=== PATIENT | male | born 1935 | race Caucasian/White ===

== ENCOUNTER 2020-01-09 11:50 | Outpatient (CLI) | payer MEDICARE, BC | END 2020-01-09 11:51 | disposition critical access hospital (66) | LOC: EMS 11:50 | PROVIDERS: ATTEND Surgery | DX: R40.20 Unspecified coma (principal) | CPT/HCPCS: A0425; A0433 ==

== ENCOUNTER 2020-01-09 12:06 | Observation (INO) | payer MEDICARE, BC ==
[2020-01-09] MEDS ORDERED: SODIUM CHLORIDE 0.9% 1,000 ML IV STA (12:10)
[2020-01-09] MEDS ORDERED: EPINEPHrine ABBOJECT 1 MG/10 ML SYRINGE IVP STA (12:16)
--- NOTE | 2020-01-09 12:25 | ED Physician Documentation ---
PD HPI CPR - Stated complaint Stated Complaint: UNRESPONSIVE - Chief complaint Chief Complaint: Resp - History obtained from History obtained from: Family, EMS - Additional information Additional information: Healthy 84-year-old gentleman although he does not see doctors per se. All the history is from the paramedics and the since he is obtunded. Recently had some trouble with vision in the right eye and was seen by an warp spinner and subsequently referred to a retinal specialist. Reportedly has low blood flow in the right eye and was scheduled today to have a full physical which is the first time in a long time. He went out to his shop around 9 AM and was found by a neighbor collapsed on the ground. He had vomited and there was a little bit of blood from something. Per paramedics he was obtunded, did not resist an oral airway and was intubated prior to arrival with the use of etomidate, succinylcholine, and vecuronium. Review of Systems Unable to obtain: Intubated PD PAST MEDICAL HISTORY - Allergies Allergies/Adverse Reactions: Allergies Allergy/AdvReac Type Severity Reaction Status Date / Time No Known Drug Allergies Allergy Verified 01/09/20 12:12 PD ED PE NORMAL - Vitals Vital signs reviewed: Yes - General General: Other (Intubated with good bilateral breath sounds and chest rise) - HEENT HEENT: Other ([place] nonreactive pupils) - Neck Neck: Other (In a c-collar) - Cardiac Cardiac: RRR, No murmur - Respiratory Respiratory: Other (Rhonchorous bilaterally) - Abdomen Abdomen: Non tender, Other (There is a nonpulsatile mass to the right mid abdomen of unclear acuity, the had not noted it.) - Back Back: No CVA TTP, No spinal TTP - Derm Derm: Normal color, Other (Cool extremities) - Extremities Extremities: No edema - Neuro Eye Opening: None Motor: None Verbal: None GCS Score: 3 Results - Vitals Vitals: Vital Signs - 24 hr 01/09/20 01/09/20 01/09/20 12:12 12:16 12:31 Temperature 97.2 C H Heart Rate 137 H 137 H 105 H Respiratory 12 12 16 Rate Blood Pressure 133/90 H 220/180 H 182/155 H O2 Saturation 98 94 99 01/09/20 01/09/20 01/09/20 12:56 13:01 13:16 Temperature Heart Rate 114 H 105 H 105 H Respiratory 24 8 L Rate Blood Pressure 104/86 H 99/80 O2 Saturation 99 99 01/09/20 13:30 Temperature Heart Rate 108 H Respiratory 26 H Rate Blood Pressure 185/146 H O2 Saturation 91 L Oxygen O2 Source Room air - EKG (time done) 1227 Rate: Rate (enter#) (128) Rhythm: Sinus tachycardia Intervals: RBBB Ischemia: ST elevation c/w ischemia (Kind of diffusely but especially anteriorly and laterally. Of note this was done just after CPR was done, so not sure it represents true STEMI.) Computer interpretation: Agree with computer - Labs Labs: Laboratory Tests 01/09/20 01/09/20 01/09/20 12:23 12:32 12:32 WBC 24.0 H RBC 4.92 Hgb 16.4 Hct 49.1 MCV 99.8 H MCH 33.3 H MCHC 33.4 RDW 12.7 Plt Count 289 MPV 9.2 Neut # (Auto) 18.1 H Lymph # (Auto) 3.2 [place] # (Auto) 1.5 H Eos # (Auto) 0.3 Baso # (Auto) 0.3 H Absolute Nucleated RBC 0.00 Band Neuts % (Manual) WINDOW TRIMMER Abnorm Lymph % (Manual) WINDOW TRIMMER Nucleated RBC % 0.0 Neutrophils # (Manual) Not Reportable Lymphocytes # (Manual) WINDOW TRIMMER Monocytes # (Manual) WINDOW TRIMMER Eosinophils # (Manual) WINDOW TRIMMER Basophils # (Manual) WINDOW TRIMMER Manual Slide Review Indicated RBC Morph Micro Appear 2+ ANISOCYTOSIS PT 12.7 H INR 1.1 Sodium Potassium Chloride Carbon Dioxide Anion Gap BUN Creatinine Estimated GFR (MDRD) Glucose Calcium Magnesium Total Bilirubin AST ALT Alkaline Phosphatase Total Creatine Kinase CK-MB (CK-2) Troponin I High Sens Total Protein Albumin Globulin Albumin/Globulin Ratio Lipase TSH Urine Color YELLOW Urine Clarity CLOUDY Urine pH 6.0 Ur Specific [place] 1.020 Urine Protein 100 H Urine Glucose (UA) 250 H Urine Ketones NEGATIVE Urine Occult Blood SMALL H Urine Nitrite NEGATIVE Urine Bilirubin NEGATIVE Urine Urobilinogen 0.2 (NORMAL) Ur Leukocyte Esterase NEGATIVE Urine RBC 6-10 H Urine WBC 4-5 Ur Squamous Epith Cells RARE Squamous Urine Bacteria Moderate H Urine Casts 0-2 Hyaline Casts Ur Microscopic Review INDICATED Urine Culture Comments INDICATED Salicylates Urine Opiates Screen NEGATIVE Ur Oxycodone Screen NEGATIVE Urine Methadone Screen NEGATIVE Ur Propoxyphene Screen NEGATIVE Acetaminophen Ur Barbiturates Screen NEGATIVE Ur Tricyclics Screen NEGATIVE Ur Phencyclidine Scrn NEGATIVE Ur Amphetamine Screen NEGATIVE U Methamphetamines Scrn NEGATIVE U Benzodiazepines Scrn NEGATIVE Urine Cocaine Screen NEGATIVE U Cannabinoids Screen NEGATIVE Ethyl Alcohol 01/09/20 01/09/20 01/09/20 12:32 12:32 12:32 WBC RBC Hgb Hct MCV MCH MCHC RDW Plt Count MPV Neut # (Auto) Lymph # (Auto) [place] # (Auto) Eos # (Auto) Baso # (Auto) Absolute Nucleated RBC Band Neuts % (Manual) Abnorm Lymph % (Manual) Nucleated RBC % Neutrophils # (Manual) Lymphocytes # (Manual) Monocytes # (Manual) Eosinophils # (Manual) Basophils # (Manual) Manual Slide Review RBC Morph Micro Appear PT INR Sodium 137 Potassium 3.1 L Chloride 102 Carbon Dioxide 24 Anion Gap 11.0 BUN 24 H Creatinine 1.6 H Estimated GFR (MDRD) 42 L Glucose 300 H Calcium 8.1 L Magnesium 2.1 Total Bilirubin 0.8 AST 45 H ALT 35 Alkaline Phosphatase 66 Total Creatine Kinase 118 CK-MB (CK-2) 11.3 H Troponin I High Sens Total Protein 6.7 Albumin 3.9 Globulin 2.8 Albumin/Globulin Ratio 1.4 Lipase 41 TSH 2.20 Urine Color Urine Clarity Urine pH Ur Specific [place] Urine Protein Urine Glucose (UA) Urine Ketones Urine Occult Blood Urine Nitrite Urine Bilirubin Urine Urobilinogen Ur Leukocyte Esterase Urine RBC Urine WBC Ur Squamous Epith Cells Urine Bacteria Urine Casts Ur Microscopic Review Urine Culture Comments Salicylates < 6.0 Urine Opiates Screen Ur Oxycodone Screen Urine Methadone Screen Ur Propoxyphene Screen Acetaminophen < 10 L Ur Barbiturates Screen Ur Tricyclics Screen Ur Phencyclidine Scrn Ur Amphetamine Screen U Methamphetamines Scrn U Benzodiazepines Scrn Urine Cocaine Screen U Cannabinoids Screen Ethyl Alcohol < 5.0 01/09/20 12:37 WBC RBC Hgb Hct MCV MCH MCHC RDW Plt Count MPV Neut # (Auto) Lymph # (Auto) [place] # (Auto) Eos # (Auto) Baso # (Auto) Absolute Nucleated RBC Band Neuts % (Manual) Abnorm Lymph % (Manual) Nucleated RBC % Neutrophils # (Manual) Lymphocytes # (Manual) Monocytes # (Manual) Eosinophils # (Manual) Basophils # (Manual) Manual Slide Review RBC Morph Micro Appear PT INR Sodium Potassium Chloride Carbon Dioxide Anion Gap BUN Creatinine Estimated GFR (MDRD) Glucose Calcium Magnesium Total Bilirubin AST ALT Alkaline Phosphatase Total Creatine Kinase CK-MB (CK-2) Troponin I High Sens 1930.8 H* Total Protein Albumin Globulin Albumin/Globulin Ratio Lipase TSH Urine Color Urine Clarity Urine pH Ur Specific [place] Urine Protein Urine Glucose (UA) Urine Ketones Urine Occult Blood Urine Nitrite Urine Bilirubin Urine Urobilinogen Ur Leukocyte Esterase Urine RBC Urine WBC Ur Squamous Epith Cells Urine Bacteria Urine Casts Ur Microscopic Review Urine Culture Comments Salicylates Urine Opiates Screen Ur Oxycodone Screen Urine Methadone Screen Ur Propoxyphene Screen Acetaminophen Ur Barbiturates Screen Ur Tricyclics Screen Ur Phencyclidine Scrn Ur Amphetamine Screen U Methamphetamines Scrn U Benzodiazepines Scrn Urine Cocaine Screen U Cannabinoids Screen Ethyl Alcohol - Rads (name of study) CT Head Radiology: EMP read contemporaneously (extensive SAH with inraventricular hemorrhage likely d/t R aneurysm) 1v chest Radiology: EMP read contemporaneously (ETT ok, neurogenic pulm edema.) CT abd Radiology: EMP read contemporaneously (Right anterior rib fractures, 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 He did lose his pulses shortly after his arrival. Was in a wide-complex PEA, regular, although look too slow to be V. tach. He responded to epinephrine and CPR. I accompanied him over to CT, to my eye the head CT shows a large right basal ganglia hemorrhage with both intraventricular and subarachnoid extension as well as early signs of ventriculomegaly. This was discussed with the . I discussed that the prognosis of this is very poor at best. He has been started on esmolol for significant hypertension, I wanted something that was very short acting and could be titrated off if he arrested again. He actually did arrest again very briefly, but responded to CPR. After extensive discussions with the , her son, and other family they made the decision to transition to comfort care. He was extubated. He did have some prolonged agonal breathing and was administered some morphine. After extubation he continued to have agonal breathing for quite some time and Dr. Lucasf will put him on the floor for continued comfort care. - Critical Care Time(min): 60 Time Includes: Direct patient care, Review records, Reassess patient, Document care, Coordinate care, Family consult for tx dec Data interpretation: Labs, Pulse ox, CXR Procedures included in critical care time: Peripheral IV Procedures excluded from critical care time: EKG, CPR Departure - Departure Disposition: ED Place in Observation Clinical Impression: Subarachnoid hemorrhage, Need for comfort care, DNR (do not resuscitate) Respiratory failure Qualifiers: Chronicity: acute Respiratory failure complication: hypercapnia Qualified Code(s): J96.02 - Acute respiratory failure with hypercapnia Abdominal mass Qualifiers: Abdominal location: right lower quadrant Qualified Code(s): R19.03 - Right lower quadrant abdominal swelling, mass and lump Pulmonary edema Qualifiers: Chronicity: acute Qualified Code(s): J81.0 - Acute pulmonary edema Condition: Serious
[2020-01-09 12:38] LABS: BASOPHILS # (AUTO) 0.3 10^3/uL (0.0-0.1); BASOPHILS % (AUTO) 1.2 %; EOSINOPHILS # (AUTO) 0.3 10^3/uL (0.0-0.7); EOSINOPHILS % (AUTO) 1.1 %; HGB - HEMOGLOBIN 16.4 g/dL (14.0-18.0); LYMPHOCYTES # (AUTO) 3.2 10^3/uL (1.5-3.5); LYMPHOCYTES % (AUTO) 13.2 %; MEAN CORPUSCULAR HEMOGLOBIN 33.3 pg (27.0-31.0); MEAN CORPUSCULAR HGB CONC 33.4 g/dL (32.0-36.0); MEAN CORPUSCULAR VOLUME 99.8 fL (80.0-94.0); MEAN PLATELET VOLUME 9.2 fL (7.4-11.4); MONOCYTES # (AUTO) 1.5 10^3/uL (0.0-1.0); MONOCYTES % (AUTO) 6.4 %; NEUTROPHILS # (AUTO) 18.1 10^3/uL (1.5-6.6); NEUTROPHILS % (AUTO) 75.5 %; PLT - PLATELET COUNT 289 10^3/uL (130-450); RED BLOOD COUNT 4.92 10^6/uL (4.70-6.10); RED CELL DISTRIBUTION WIDTH 12.7 % (12.0-15.0)
[2020-01-09] MEDS ORDERED: IOVERSOL 320 100 ML VIAL IVP ONE ×2 (12:39→15:13)
[2020-01-09 12:50] LABS: INR 1.1 (0.8-1.2); PT - PROTHROMBIN TIME 12.7 secs (9.9-12.6)
[2020-01-09] MEDS ORDERED: ESMOLOL 2.5 GM/250 ML BAG IV STA (12:53)
[2020-01-09] MEDS ORDERED: ESMOLOL 100 MG/10 ML VIAL IVP STA (12:53)
[2020-01-09 12:54] LABS: ACETAMINOPHEN < 10 ug/mL (10-30); ALBUMIN 3.9 g/dL (3.2-5.5); ALBUMIN/GLOBULIN RATIO 1.4 (1.0-2.2); ALKALINE PHOSPHATASE 66 IU/L (42-121); ALT ALANINE AMINOTRANSFERASE 35 IU/L (10-60); AST ASPARTATE AMINOTRANSFERASE 45 IU/L (10-42); BILIRUBIN,TOTAL 0.8 mg/dL (0.2-1.0); BUN - BLOOD UREA NITROGEN 24 mg/dL (6-20); CALCIUM 8.1 mg/dL (8.5-10.3); CARBON DIOXIDE - CO2 24 mmol/L (21-32); CHLORIDE 102 mmol/L (101-111); CK- CREATINE KINASE 118 IU/L (22-269); CREATININE 1.6 mg/dL (0.6-1.2); GLUCOSE 300 mg/dL (70-100); LIPASE 41 U/L (22-51); MAGNESIUM 2.1 mg/dL (1.7-2.8); SALICYLATE < 6.0 mg/dL; SODIUM 137 mmol/L (135-145); TOTAL PROTEIN 6.7 g/dL (6.7-8.2)
--- NOTE | 2020-01-09 13:01 | CT Report ---
PROCEDURE: HEAD WO INDICATIONS: obtunded TECHNIQUE: Noncontrast 4.5 mm thick angled axial sections acquired from the foramen magnum to the vertex. For r adiation dose reduction, the following was used: automated exposure control, adjustment of mA and/or kV according to patient size. COMPARISON: None. FINDINGS: Image quality: Excellent. There is extensive subarachnoid and intraparenchymal hemorrhage at the epicenter at the right [place]. There is intraventricular hemorrhage involving the lateral, third, and distending the four th ventricle. Hemorrhage fills the basal cisterns. There is mild right to left midline shift and the basal ganglia compressing the third ventricle. The calvarium, sinuses, and extracranial soft tissues are unremarkable. IMPRESSION: 1. Extensive subarachnoid/intraventricular hemorrhage with the epicenter at the right [place] , likely ruptured aneurysm. 2. Discussed with Dr. Roldan in the emergency room at 1256 hours. Reviewed by: So Heath MD on 01/09/2020 1:00 PM PDT Approved by: So Heath MD on 01/09/2020 1:00 PM PDT Station ID: [id number]
--- NOTE | 2020-01-09 13:04 | XRAY Report ---
PROCEDURE: Chest for Line Placement INDICATIONS: CPR IN PROGRESS, ET TUBE PLACED TECHNIQUE: One view of the chest was acquired. COMPARISON: None FINDINGS: Surgical changes and devices: Endotracheal tube is about 3.2 cm above the caden. There are monitorin g leads and defibrillator pads in place. Lungs and pleura: Diffuse thickening of the interstitial markings and indistinct central vessels. No visible pneumothorax or significant pleural effusion. Mediastinum: Mediastinal contour is prominent which is likely an artifact of positioning.. Heart siz e is normal. Bones and chest wall: No suspicious bony lesions. Overlying soft tissues appear unremarkable. IMPRESSION: 1. Satisfactory position of endotracheal tube. 2. Diffuse interstitial thickening and indistinct central vessels are likely a reflection of neurogen ic pulmonary edema. Reviewed by: So Heath MD on 01/09/2020 1:03 PM PDT Approved by: So Heath MD on 01/09/2020 1:03 PM PDT Station ID: [id number]
[2020-01-09 13:07] LABS: MUDS CUTOFF CONCENTRATIONS CUTOFF CONC BELOW:
[2020-01-09 13:11] LABS: BILIRUBIN,URINE NEGATIVE (NEGATIVE); GLUCOSE, URINE (UA) 250 mg/dL (NEGATIVE); KETONES,URINE (UA) NEGATIVE (NEGATIVE); LEUKOCYTE ESTERASE, URINE NEGATIVE (NEGATIVE); NITRITE,URINE NEGATIVE (NEGATIVE); OCCULT BLOOD,URINE SMALL (NEGATIVE); PROTEIN,URINE 100 mg/dL (NEGATIVE); UROBILINOGEN,URINE 0.2 (NORMAL) E.U./dL (NORMAL)
--- NOTE | 2020-01-09 13:13 | CT Report ---
PROCEDURE: CERVICAL SPINE WO INDICATIONS: poss trauma TECHNIQUE: Noncontrast 3 mm thick sections acquired from the skull base to the T4 level. Sagittal and coronal r eformats were then constructed. For radiation dose reduction, the following was used: automated exp osure control, adjustment of mA and/or kV according to patient size. COMPARISON: None. FINDINGS: Image quality: Excellent. Bones: No fractures or dislocations. There are degenerative changes at the atlantodental interval, diffuse disc height loss at C4-5 C5-6 and C6-7, and uncovertebral joint hypertrophy at C5-6. Visualiz ed superior ribs are intact. Soft tissues: An endotracheal tube is in place. Images of the skull base demonstrate a previously re cognized subarachnoid and intraventricular hemorrhage. Lung apices demonstrate interstitial thickenin g. No pneumothorax. No prevertebral soft tissue hematomas. IMPRESSION: 1. No CT evidence of acute cervical spine trauma. 2. Known subarachnoid and intraventricular hemorrhage. 3. Degenerative changes in the cervical spine as described. Reviewed by: So Heath MD on 01/09/2020 1:11 PM PDT Approved by: So Heath MD on 01/09/2020 1:11 PM PDT Station ID: [id number]
[2020-01-09 13:21] LABS: CLARITY,URINE CLOUDY (CLEAR)
[2020-01-09 13:22] LABS: AMPHETAMINE SCREEN,URINE NEGATIVE (NEGATIVE); BENZODIAZEPINES SCREEN, URINE NEGATIVE (NEGATIVE); COCAINE SCREEN URINE NEGATIVE (NEGATIVE); METHADONE SCREEN, URINE NEGATIVE (NEGATIVE); METHAMPHETAMINES SCREEN, URINE NEGATIVE (NEGATIVE); OPIATE SCREEN, URINE NEGATIVE (NEGATIVE); OXYCODONE SCREEN, URINE NEGATIVE (NEGATIVE); PROPOXYPHENE SCREEN, URINE NEGATIVE (NEGATIVE); TRICYCLIC ANTIDEPRESSANT,URINE NEGATIVE (NEGATIVE)
[2020-01-09] MEDS ORDERED: MORPHINE 10 MG/ML VIAL IVP STA (13:24)
[2020-01-09] MEDS ORDERED: MORPHINE 10 MG/ML VIAL ONE (13:26)
--- NOTE | 2020-01-09 13:27 | CT Report ---
PROCEDURE: Abdomen/Pelvis W INDICATIONS: abd mass, iv only, CONTRAST: IV CONTRAST: Optiray 320 ml: 100 PO CONTRAST: *NO PO CONTRAST TECHNIQUE: After the administration of oral and intravenous contrast, 5 mm thick sections acquired from the diap hragms to the symphysis. 5 mm thick coronal and sagittal reformats were acquired. For radiation dos e reduction, the following was used: automated exposure control, adjustment of mA and/or kV accordin g to patient size. COMPARISON: None. FINDINGS: Image quality: Excellent. ABDOMEN: Lung bases: Consolidative changes posterior medially at both lung bases. No basal pneumothorax. Defor mities in the right anterior ribs of buckle fractures, likely from ongoing CPR. Heart size is normal . Solid organs: Liver and spleen are normal in size and enhancement. Gallbladder is unremarkable Jude iary system is non dilated. Pancreas enhances normally. No adrenal nodules. The right kidney is dif fusely atrophic but enhances. Peritoneum and bowel: Bowel loops demonstrate normal wall thickness and caliber. No free fluid or a ir. Nodes and vessels: No retroperitoneal or mesenteric adenopathy by size criteria. The abdominal aorta is tortuous in its course with moderate calcific atherosclerosis. Miscellaneous: No ventral hernias. PELVIS: Genitourinary: The urinary bladder is distended. Bladder wall thickness is normal. Miscellaneous: There is aneurysm of the right common iliac artery measuring 10.7 x 11.4 x 10.9 cm. T he majority opacifies with contrast. There is a moderate amount of polypoid adherent thrombus to the left lateral wall. There is delayed opacification of the distal right external iliac artery. There is a 3.6 cm left common iliac artery aneurysm. No evidence of rupture of either aneurysm. A small fat-c ontaining left inguinal hernia. Bones: No suspicious bony lesions. No vertebral body compression fractures. IMPRESSION: 1. No CT evidence of acute trauma in the abdomen or pelvis. 2. Deformity of right anterior rib fractures from CPR 3. 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 4. 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 5. Right renal atrophy. Reviewed by: So Heath MD on 01/09/2020 1:25 PM PDT Approved by: So Heath MD on 01/09/2020 1:25 PM PDT Station ID: [id number]
[2020-01-09 13:37] LABS: BACTERIA,URINE Moderate /HPF (None Seen); SQUAMOUS EPITHELIAL CELL,UR RARE Squamous (<= Few)
[2020-01-09 13:53] LABS: RBC MORPHOLOGY (MULTIPLE) 2+ ANISOCYTOSIS (NORMAL)
[2020-01-09] MEDS ORDERED: HALOPERIDOL 5 MG/ML VIAL IVP PRN (14:02)
--- NOTE | 2020-01-09 14:03 | HISTORY & PHYSICAL EXAMINATION ---
Chief Complaint - Chief Complaint Chief Complaint: Unresponsive History of Present Illness - Admitted From Admitted From:: Home - History Obtained From Records Reviewed: Yes History obtained from: , ER Physician, EMR Exam Limitations: Patient is unresponsive. - History of Present Illness HPI Comment/Other: This is a 84-year-old male with no significant past medical history who takes no medications who presented today to the ER after he was found unresponsive at home. Per his , he had been complaining of right-sided blurry vision and floaters. He was seen by an gold buyer and then referred to retinal specialist for evaluation. He was told that he had low blood pressure in the right eye and he was due to obtain further imaging today at the hospital. This morning he went out to the shop and a neighbor found him on the ground covered in vomit. In the emergency department, he was found to have extensive subarachnoid/intraventricular hemorrhage on CT of the head. He had 2 witnessed cardiac arrest in the emergency department that responded to epinephrine both times. He was found to be hypertensive and was given esmolol after the first cardiac arrest. The initial rhythm was slow wide-complex tachycardia per the ER provider. Cardiac arrest responded to CPR without any defibrillation. After this, the ER provider spoke with the family to discuss goals of care. They decided on pursuing comfort measures. The patient was extubated and given morphine. He was monitored in the emergency department but as he continued to have agonal breathing and given it is unclear how long he will survive, medicine was consulted for admission. Once again told me that that the patient had discussed in the past that he would not want mechanical ventilation or live in a fci if he had any type of neuro deficit. They feel that comfort measures is what his wishes would be. History - Past Surgical History Other past surgical history: Deferred given the patient is comfort measures. - Family & Social History Family History Comment/Other: Deferred given the patient is comfort measures. Living arrangement: At home Living Situation: With spouse/s.o. Social History Notes: Deferred given the patient is comfort measures. Meds/Allgy - Allergies Allergies/Adverse Reactions: Allergies Allergy/AdvReac Type Severity Reaction Status Date / Time No Known Drug Allergies Allergy Verified 01/09/20 12:12 Review of Systems - All Other Systems All Other Systems: reports: Other (Unable to obtain as patient is unresponsive.) Prior Level of Functionality: Independent with his ADLs prior to this hospitalization. Exam - Vital Signs Reviewed Vital Signs: Yes Vital Signs: Vital Signs x48h Temp Pulse Resp BP Pulse Ox 01/09/20 13:30 108 H 26 H 185/146 H 91 L 01/09/20 13:16 105 H 8 L 99/80 99 01/09/20 13:01 105 H 24 104/86 H 99 01/09/20 12:56 114 H 01/09/20 12:31 97.2 C H 105 H 16 182/155 H 99 01/09/20 12:16 137 H 12 220/180 H 94 01/09/20 12:12 137 H 12 133/90 H 98 - Physical Exam General Appearance: positive: Other (He is unresponsive.) Eyes Bilateral: positive: Other (Left pupil is 1 mm and right pupil is 2 mm. The right pupil is not reactive to light.) Respiratory: positive: Other (He has agonal respirations. Breath sounds are rhonchorous bilaterally. There is a right chest wall deformity consistent with a rib fracture.) Cardiovascular: positive: Regular rate & rhythm, Tachycardia Abdomen: positive: Other (There is a right lower quadrant mass palpated. Abdomen is soft and nondistended.) Skin: positive: Dry Extremities: positive: No pedal edema Conclusion/Plan - Problem List (1) Subarachnoid hemorrhage Conclusion/Plan: Presents with a catastrophic subarachnoid hemorrhage. He had 2 cardiac arrests in the emergency department. Family has decided to pursue comfort measures. He will be admitted to the floor for this. We will start him on morphine lorazepam IV as needed. We will also start Haldol as needed. We will add a scopolamine patch for secretions. (2) Need for comfort care Conclusion/Plan: Family has decided to pursue comfort measures as mentioned above. - Lab Results Lab results reviewed: Yes Fish Bones: 01/09/20 12:32 01/09/20 12:32 - Diagnostic Imaging Results Diagnostic Imaging Results: positive: Final report reviewed - EKG Results EKG Interpreted Independently: Yes EKG Findings: EKG does show ST elevation in anterior lateral leads. His troponin is significantly elevated. Core Measures - Anticipated LOS I expect patient to be DC'd or transferred within 96 hours.: Yes - Issues Hospital Issues and Management Plan: 84-year-old male found to have extensive subarachnoid/intraventricular hemorrhage. Admitted for comfort measures only. Will treat with morphine, lorazepam, Haldol, scopolamine patch. - DVT/VTE - Prophylaxis VTE/DVT Device ordered at admit?: No Not Ordered - Medical Reason: Not indicated VTE/DVT Prophylaxis med ordered at admit?: No Not Ordered - Medical Reason: Not indicated
[2020-01-09 14:58] VITALS: BP 132/107
[2020-01-09] MEDS ORDERED: SCOPOLAMINE PATCH TOP SCH (15:00)
[2020-01-09] MEDS: MORPHINE 2 MG/ML CARPUJECT IVP PRN ×11 (15:06→23:03)
[2020-01-09] MEDS: LORazepam 2 MG/ML VIAL IVP PRN ×2 (16:25→23:03)
[2020-01-09] MEDS: SODIUM CHLORIDE FLUSH 0.9% 10 ML SYRINGE IVP PRN ×5 (17:29→23:03)
[2020-01-10] MEDS: SODIUM CHLORIDE FLUSH 0.9% 10 ML SYRINGE IVP PRN ×4 (00:03→03:16)
[2020-01-10] MEDS: MORPHINE 2 MG/ML CARPUJECT IVP PRN ×4 (00:03→03:16)
--- NOTE | 2020-01-10 03:48 | DISCHARGE SUMMARY ---
Discharge Summary Admit Date: 01/09/20 Discharge Date: 01/10/20 Discharging Provider: Jorge Miranda Nchotu Code Status: Do Not Attempt Resuscitation Discharge Disposition: 20 Discharge Facility Name: [facility] - DIAGNOSES Admission Diagnoses: 1. Subarachnoid hemorrhage Discharge Diagnoses with Status of Each Condition: 1. Subarachnoid hemorrhage: Patient - HPI History of Present Illness: Per HPI of H&P done by Dr. Holden: This is a 84-year-old male with no significant past medical history who takes no medications who presented today to the ER after he was found unresponsive at home. Per his , he had been complaining of right-sided blurry vision and floaters. He was seen by an community action worker and then referred to retinal specialist for evaluation. He was told that he had low blood pressure in the right eye and he was due to obtain further imaging today at the hospital. This morning he went out to the shop and a neighbor found him on the ground covered in vomit. In the emergency department, he was found to have extensive subarachnoid/intraventricular hemorrhage on CT of the head. He had 2 witnessed cardiac arrest in the emergency department that responded to epinephrine both times. He was found to be hypertensive and was given esmolol after the first cardiac arrest. The initial rhythm was slow wide-complex tachycardia per the ER provider. Cardiac arrest responded to CPR without any defibrillation. After this, the ER provider spoke with the family to discuss goals of care. They decided on pursuing comfort measures. The patient was extubated and given morphine. He was monitored in the emergency department but as he continued to have agonal breathing and given it is unclear how long he will survive, medicine was consulted for admission. Once again told me that that the patient had discussed in the past that he would not want mechanical ventilation or live in a detention if he had any type of neuro deficit. They feel that comfort measures is what his wishes would be. - HOSPITAL COURSE Hospital Course: The physician conference assistant was called to the patient's room for evaluation because the patient had stopped breathing. His and son were at bedside upon presentation. The patient was nonresponsive to verbal and tactile stimuli. Pupils were fixed dilated and unresponsive to light. There was no corneal reflex. Breath and heart sounds were absent on auscultation. Carotid and radial pulses were absent bilaterally. Patient was pronounced on January 10, 2020 at 3:23 AM. The family requested that Zahra's home be contacted. - ALLERGIES Allergies/Adverse Reactions: Allergies Allergy/AdvReac Type Severity Reaction Status Date / Time No Known Drug Allergies Allergy Verified 01/09/20 12:12 - MEDICATIONS Home Medications: Ambulatory Orders Medication Instructions Recorded Confirmed No Known Home Medications 01/09/20 01/09/20 - LABS Result Diagrams: 01/09/20 12:32 01/09/20 12:32 - TIME SPENT Time Spent in Discharge (Minutes): 20
--- NOTE | 2020-01-10 03:48 | Discharge Plan ---
Discharge Plan Problem Reviewed?: Yes Disposition: 20 No Smoking: If you smoke, Please STOP! Call for help.
== END 2020-01-10 03:23 | disposition expired ==
LOC: EDUNIT# → ED 12:06 → ICU 14:00
PROVIDERS: ADMIT Internal Medicine; ATTEND Internal Medicine
DX: Z51.5 Encounter for palliative care (principal); I60.6 Nontraumatic subarachnoid hemorrhage from other intracranial arteries; I46.9 Cardiac arrest, cause unspecified; S22.41XA Multiple fractures of ribs, right side, initial encounter for closed fracture; Y84.8 Other medical procedures as the cause of abnormal reaction of the patient, or of later complication, without mention of misadventure at the time of the procedure; Y92.098 Other place in other non-institutional residence as the place of occurrence of the external cause; Z66 Do not resuscitate; I10 Essential (primary) hypertension; I72.3 Aneurysm of iliac artery; J96.02 Acute respiratory failure with hypercapnia; J81.0 Acute pulmonary edema
CPT/HCPCS: 36415; 51702; 70450; 71045; 72125; 74177; 80053; 81001; 82550; 82553; 83690; 83735; 84443; 84484; 85025; 85610; 87086; 92950; 93005; 94002; 96374; 96375; 96376; 99285; 99291; G0378; J2060; J3490; Q9967; 80306; 80307; 80320; 80329; 81003; 94770